=== PATIENT | male | born 1970 | race Caucasian/White ===

== ENCOUNTER 2017-08-31 09:49 | Emergency (ER) | payer BC ==
[~2017-08-31] VITALS: Ht 185.4 cm; Wt 113.4 kg
[2017-08-31] MEDS ORDERED: EFFEXOR 5050 MG/1 T1 PO (10:09)
[2017-08-31] MEDS ORDERED: LISINOPRIL10 MG PO (10:09)
[2017-08-31 12:24] VITALS: BP 126/84
== END 2017-08-31 12:25 | disposition home or self-care (01) ==
LOC: M.ERS 09:49
DX: M54.2 Cervicalgia (principal); M54.6 Pain in thoracic spine; V43.53XA Car driver injured in collision with pick-up truck in traffic accident, initial encounter; Y93.89 Activity, other specified; Y92.89 Other specified places as the place of occurrence of the external cause; Y99.8 Other external cause status